=== PATIENT | male | born 1955 | race Caucasian/White ===

== ENCOUNTER 2016-11-22 11:28 | Outpatient (CLI) | payer BC | END 2016-11-22 19:46 | disposition home or self-care (01) | LOC: SRD 11:28 | PROVIDERS: ATTEND Internal Medicine | DX: Z01.818 Encounter for other preprocedural examination (principal) | CPT/HCPCS: 71020-TC; 93005 ==

== ENCOUNTER 2018-09-02 16:26 | Outpatient (CLI) | payer BC | END 2018-09-02 19:26 | disposition home or self-care (01) | LOC: SRD 16:26 | PROVIDERS: ATTEND Internal Medicine | DX: M25.471 Effusion, right ankle (principal) ==

== ENCOUNTER 2020-03-10 15:34 | Outpatient (CLI) | payer BC | END 2020-03-10 20:14 | disposition home or self-care (01) | LOC: SRD 15:34 | PROVIDERS: ATTEND Internal Medicine | DX: M79.641 Pain in right hand (principal) | CPT/HCPCS: 73140-TC ==

== ENCOUNTER 2020-03-24 15:05 | Outpatient (CLI) | payer BC | END 2020-03-24 18:57 | disposition home or self-care (01) | LOC: SRD 15:05 | PROVIDERS: ATTEND Internal Medicine | DX: S69.91XD Unspecified injury of right wrist, hand and finger(s), subsequent encounter (principal); M79.644 Pain in right finger(s); X58.XXXD Exposure to other specified factors, subsequent encounter | CPT/HCPCS: 73140-TC ==

== ENCOUNTER 2020-10-28 09:53 | Outpatient (CLI) | payer BC | END 2020-10-28 20:13 | disposition home or self-care (01) | LOC: SRD 09:53 | PROVIDERS: ATTEND Internal Medicine | DX: M25.572 Pain in left ankle and joints of left foot (principal); M79.89 Other specified soft tissue disorders ==

== ENCOUNTER 2020-11-08 12:54 | Outpatient (CLI) | payer BC | END 2020-11-08 20:48 | disposition home or self-care (01) | LOC: SRD 12:54 | PROVIDERS: ATTEND Internal Medicine | DX: S82.892A Other fracture of left lower leg, initial encounter for closed fracture (principal); X58.XXXA Exposure to other specified factors, initial encounter; Y93.89 Activity, other specified; Y92.89 Other specified places as the place of occurrence of the external cause; Y99.8 Other external cause status ==